=== PATIENT | female | born 1985 | race Caucasian/White ===

== ENCOUNTER 2017-08-21 08:23 | Day surgery (SDC) | payer BC ==
[~2017-08-21 08:23] MED LIST: ACETAMINOPHEN 1,000 MG/100 ML BTL IV ONE
[2017-08-21] MEDS ORDERED: LIDOCAINE 2% MDV (20MG/ML) 20ML VIAL IV ONE (08:24)
[2017-08-21] MEDS ORDERED: KETOROLAC 30 MG/ML VIAL IVP ONE (08:24)
[2017-08-21] MEDS ORDERED: ALPRAZOLAM 1 MG TAB PO ONE (08:24)
[2017-08-21] MEDS ORDERED: FENTANYL PF 100MCG/2ML VIAL IV ONE (08:24)
[2017-08-21] MEDS ORDERED: MIDAZOLAM HCL 2MG/2ML VIAL IV ONE (08:24)
[2017-08-21] MEDS ORDERED: SEVOFLURANE 250 ML INH ONE (08:24)
[2017-08-21] MEDS ORDERED: MORPHINE SULFATE 4MG/ML PREFILLED SYRINGE IVP ONE (08:24)
[2017-08-21] MEDS ORDERED: ONDANSETRON HCL IV 4 MG/2 ML VIAL IVP ONE (08:24)
[2017-08-21] MEDS ORDERED: PROPOFOL 10 MG/ML VIAL IV ONE (08:24)
[2017-08-21] MEDS ORDERED: MORPHINE SULFATE 4MG/ML PREFILLED SYRINGE ONE (10:34)
--- NOTE | 2017-08-22 12:31 | Operative Note ---
DATE OF SURGERY: 08/21/2017 Surgeon: Ulices Mckeon DO PREOPERATIVE DIAGNOSIS: Carpal tunnel syndrome of the right wrist. POSTOPERATIVE DIAGNOSIS: Carpal tunnel syndrome of the right wrist. OPERATION: Decompression right median nerve at the wrist using 3.5 loop magnification. DESCRIPTION OF PROCEDURE: This 32-year-old female was taken to the operating room, placed in the supine position on the operating room table. General anesthesia was induced. The right upper extremity was elevated, prepped with Hibiclens, and draped in the usual sterile fashion. It was exsanguinated and the tourniquet inflated to 250 mmHg. A palmar incision was utilized following the hypothenar crease from the level of the base of the web space of the thumb to the flexor crease of the wrist. Dissection was carried down through the skin and subcutaneous tissue. Hemostasis obtained with the electrocautery. Palmar fascia divided in line with skin incision. We then identified the flexor retinaculum, punctured a small hold in it and then it was split to its proximal margin. With the contents of the carpal tunnel then under direct vision, the transverse carpal ligament was transected along its ulnar border. The radial flap was raised to expose the entire median nerve under the transverse carpal ligament. The recurrent motor branch of the median nerve was identified and found to be normal. Grossly, the nerve itself appeared to be normal. The wound was irrigated with lactated Ringer's solution. Tourniquet released. Hemostasis obtained with the electrocautery and the wound closed with interrupted 6-0 nylon suture. Sterile dressings were applied with plaster splint immobilization with the wrist in slight dorsiflexion and the thumb in an adducted position. CC: Ale Ortiz DO [facility]
== END 2017-08-21 11:20 | disposition home or self-care (01) ==
LOC: SUR 08:23
PROVIDERS: ATTEND Orthopaedic Surgery
DX: G56.01 Carpal tunnel syndrome, right upper limb (principal)
CPT/HCPCS: 64721; 01810; 81025; J1885; J2405; J3010; J2274